=== PATIENT | female | born 1965 | race Caucasian/White ===

== ENCOUNTER 2017-01-03 16:38 | Emergency (ER) | payer OTHER ==
[2017-01-03 17:02] VITALS: BP 147/82; PULSE 76; RESP 18; TEMP 98.1; O2SAT 97
[2017-01-03 17:07] LABS: COLOR YELLOW; LEUKOCYTE ESTERASE,URINE NEGATIVE (NEGATIVE); NITRITE,URINE NEGATIVE (NEGATIVE)
--- NOTE | 2017-01-03 18:00 | UCPHY ---
H & P Time Seen by Provider: 01/03/17 17:35 Patient Type: New HPI/ROS: This patient complains of a cough productive of yellow sputum for the past 2 weeks. The sputum production is increased over the past few days. Early in the illness she also had a diffuse skin rash and saw a intake manager. She was prescribed an unknown ointment which she applied with resolution. She does remember any other details but currently has no rash. No other associated symptoms except for some belly bloating. She also has mild right sided flank pain and wonders if she might have a UTI. ROS: No fevers or chills. No myalgias. No other constitutional symptoms. HEENT : No complaints pulmonary: No pleuritic pain or respiratory distress. Cardiovascular: No lightheadedness calf pain or swelling. GI: She is tolerating good p.o. intake with normal bowel movements. No upper belly pain. She : Mild urinary urgency. Patient reports she is postmenopausal with her last menses in August. 10 point ROS is otherwise negative Smoking Status: Current every day smoker Physical Exam: General Appearance: Alert, no distress. Eyes: Pupils equal and round no pallor or injection. ENT, Mouth: Mucous membranes moist. Respiratory: Mild rhonchi bilaterally. Mild expiratory wheeze bilaterally. No rales. No respiratory distress. Cardiovascular: Regular rate and rhythm. No murmur gallop rub. No JVD or peripheral edema. No calf swelling or tenderness. Gastrointestinal: Abdomen is soft and nontender, no masses, bowel sounds normal. Neurological: Alert with no focal deficits noted Back: No CVA tenderness Skin: Warm and dry, no rashes. Psychiatric: Patient is mildly anxious. Mood and affect are otherwise normal DIFFERENTIAL DIAGNOSIS: After history and physical exam differential diagnosis was considered for bronchitis, doubt pneumonia, UTI, constipation Constitutional: Initial Vital Signs Temperature (C) 36.7 C 01/03/17 16:57 Heart Rate 76 01/03/17 16:57 Respiratory Rate 18 01/03/17 16:57 Blood Pressure 147/82 H 01/03/17 16:57 O2 Sat (%) 97 01/03/17 16:57 O2 Delivery Mode Room Air Allergies/Adverse Reactions: minocycline Allergy (Verified 01/03/17 16:57) Home Medications: Medication Instructions Recorded Albuterol Hfa Anes Only [Proair 2 puffs IH Q4 PRN #1 mdi 03/01/17 Hfa Icu (*)] Azithromycin [Zithromax] 250 mg PO DAILY #6 tab 01/03/17 MDM/Departure - MDM Diagnostics: Urinalysis is normal. ED Course/Re-evaluation: Findings are consistent with bronchitis. I counseled the patient regarding this. No evidence of UTI or other concerning findings. Encouraged her to stop smoking. - Depart Disposition: Home, Routine, Self-Care Clinical Impression: Bladder pain Acute bronchitis Qualifiers: Bronchitis organism: unspecified organism Qualified Code(s): J20.9 - Acute bronchitis, unspecified Condition: Good Instructions: How to Stop Smoking (ED), Acute Bronchitis (ED) Additional Instructions: Diagnoses: 1. Acute bronchitis 2. Bladder pain Your urinalysis is normal Plan: Quit smoking Humidifier Albuterol inhaler for cough, wheeze or shortness of breath Zithromax antibiotic Call your primary care physician to arrange follow-up appointment for further evaluation. Also consider follow up with OBGYN for further evaluation for any ongoing bladder/lower belly discomfort Go to the emergency department for any significant worsening despite the treatment plan Prescriptions: Albuterol Hfa Anes Only [Proair Hfa Icu (*)] 2 puffs IH Q4 PRN #1 mdi PRN Reason: Wheezing Azithromycin [Zithromax] 250 mg PO DAILY #6 tab Referrals: Kiki Mitchell MD [Primary Care Provider] - As per Instructions - PQRS PQRS Measurement: NA
== END 2017-01-03 18:10 | disposition home or self-care (01) ==
LOC: CED 16:38
DX: R30.0 Dysuria (principal); J20.9 Acute bronchitis, unspecified; F17.200 Nicotine dependence, unspecified, uncomplicated
CPT/HCPCS: 81003-PO; G0463-PO